=== PATIENT | male | born 1995 | race Caucasian/White ===

== ENCOUNTER 2016-10-02 15:09 | Inpatient (IN) ==
[2016-10-02] MEDS ORDERED: TYLENOL PO PRN (16:28)
[2016-10-02] MEDS ORDERED: NS 1,000 ML IV SCH (16:45)
[2016-10-02] MEDS: ZOFRAN IV PRN ×2 (17:14→20:46)
[2016-10-02 17:15] LABS: MANUAL DIFF NEEDED? NO
[2016-10-02] MEDS: OXY IR PO PRN ×2 (17:15→21:52)
[2016-10-02 17:22] LABS: BASO% 0.4 % (0.0-0.8); EOS# 0.02 X1000 (0.0-0.7); EOS% 0.2 % (0.0-10.0); HEMATOCRIT 38.7 % (42.0-52.0); HEMOGLOBIN 12.7 g/dL (14.0-18.0); IMM GRAN# 0.04 X1000 (0.0-0.04); IMM GRAN% 0.4 % (0.0-0.5); LYMPH# 2.78 X1000 (1.2-3.4); LYMPH% 24.7 % (20.5-51.1); MCH 25.2 PG (27-31); MCHC 32.8 g/dL (33-37); MCV 76.8 FL (81-99); MONO% 6.2 % (1.7-9.3); NEUT% 68.1 % (42.2-75.2); PLT 547 X1000 (130-400); RBC 5.04 XMIL (4.7-6.1)
[2016-10-02 17:30] LABS: INR 1.16 (0.86-1.15); PROTIME 15.1 Seconds (12.1-15.5)
[2016-10-02 17:37] LABS: AGAP 15; ALBUMIN 4.3 g/dL (3.5-5.0); ALKALINE PHOSPHATASE 124 U/L (32-122); BUN 11 mg/dL (8-22); CALCIUM 9.5 mg/dL (8.8-10.2); CHLORIDE 102 mmol/L (98-107); COSMO 275; GOT 26 U/L (10-34); GPT 61 U/L (10-44); POTASSIUM 3.5 mmol/L (3.5-5.1); SODIUM 137 mmol/L (136-145); TCO2 20 mmol/L (25-35)
[2016-10-02] MEDS ORDERED: DURAGESIC 100 MICROGM/HR PATCH TD SCH (18:00)
[2016-10-02] MEDS ORDERED: DURAGESIC 50 MICROGM/HR PATCH TD SCH (18:00)
--- NOTE | 2016-10-02 18:41 | HISTORY AND PHYSICAL ---
CHIEF COMPLAINT: Scrotal pain and vomiting since Saturday. 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 He has an indwelling Groshong catheter that he receives home TPN therapy and has had multiple hydrocele surgeries. His last 1 was 1 week ago this past Saturday with Dr. Fitzgerald. The patient had the stitches to come loose and then the wound to open up. Was seen by his primary care physician today, who felt that he may be trying to set up a little cellulitis so he wanted him direct admitted from his office. PAST MEDICAL HISTORY: Short-gut syndrome associated with Crohn's, Gallagher's esophagus, hiatal hernia, chronic pain, and hydrocele repair. PAST SURGICAL HISTORY: Ileostomy, colectomy, Groshong catheter placement, and a recent hydrocele repair. FAMILY HISTORY: Noncontributory. SOCIAL HISTORY: Currently lives with family. Does not smoke any tobacco, alcohol, or illicit drug use. ALLERGIES: Morphine, tree nuts, Periactin, Benadryl, Haldol, adhesive, and potatoes. HOME MEDICATIONS: He takes Marinol 10 mg p.o. b.i.d., Cymbalta 30 mg p.o. daily, Nexium 40 mg p.o. q.a.m., fentanyl patch 250 mcg transdermally, Jinny 180 mg p.o. daily, hydroxyzine 50 mg p.o. q.4 hours p.r.n., Zofran ODT p.o. t.i.d. and p.r.n. (will be held), Roxicodone 60 mg p.o. q.2 hours p.r.n., Topamax 50 mg p.o. b.i.d., and Coumadin 1 mg p.o. at bedtime. LABORATORY DATA: We will obtain a CBC, CMP, PT, and INR. Will obtain a scrotal ultrasound today. We will continue his home medications. REVIEW OF SYSTEMS: He denied any fever, chills, blurred vision, dizziness, chest pain, coughing, shortness of breath. Denied any abdominal pain. He has had some vomiting and nausea, scrotal pain. Denied any burning or hurting with urination. PHYSICAL EXAMINATION: VITAL SIGNS: Temperature 97.7 degrees, pulse 87, respirations 18, blood pressure 124/70, saturating 100% on room air. GENERAL: This is a 21-year-old male, who is lying in the bed. His dad is at the bedside. Answers questions. HEENT: Normocephalic, atraumatic. Pupils are equal, round, reactive to light. Extraocular movements are intact. Oropharynx and nares are clear. NECK: Supple. LUNGS: Clear to auscultation bilaterally with equal expansion and chest wall movement. HEART: With regular rate and rhythm. No murmurs, rubs, or gallops. ABDOMEN: Soft, nontender, nondistended. Bowel sounds are present x4 quadrants. Ileostomy bag noted. GENITAL EXAM: Shows incision to middle of scrotum open but no drainage noted. No redness or erythema noted, or edema. EXTREMITIES: No clubbing, cyanosis, or edema. NEUROLOGICAL: The cranial nerves 2 through 12 are grossly intact. ASSESSMENT: 1. Questionable cellulitis of hydrocele repair. 2. Nausea and vomiting. 3. Short-gut syndrome secondary to his Crohn disease. PLAN: He has been admitted to the medical unit at [facility]. Place on a clear liquid diet. Again, we will obtain these labs, scrotal ultrasound. Continue his home medications. Place on normal saline at 100 mL an hour. Further orders after labs obtained. Will have wound care consulted to follow. Dictated by BRITTNEE Hoyos for Oniel Caraballo MD cc: BRITTNEE Hoyos MD Dr. Thomas
[2016-10-02] MEDS: NS 1,000 ML IV PRN (19:42)
[2016-10-02] MEDS ORDERED: ZOFRAN IV PRN (19:59)
[2016-10-02] MEDS: MARINOL PO SCH (20:46)
[2016-10-02] MEDS: DILAUDID IV PRN (20:46)
[2016-10-02] MEDS: TOPAMAX PO SCH (20:47)
[2016-10-02] MEDS: CYMBALTA PO SCH (20:47)
[2016-10-02] MEDS: COUMADIN PO SCH (20:47)
[2016-10-02] MEDS: HYDROXYZINE PO PRN (23:50)
[2016-10-03] MEDS: ZOFRAN IV PRN ×4 (00:34→18:59)
[2016-10-03] MEDS: DILAUDID IV PRN ×6 (00:34→22:09)
[2016-10-03] MEDS: NS 1,000 ML IV PRN ×2 (04:40→13:13)
[2016-10-03] MEDS: HYDROXYZINE PO PRN ×3 (05:21→14:48)
[2016-10-03 05:47] LABS: BILIRUBIN URINE NEGATIVE (NEGATIVE); BLOOD URINE NEGATIVE (NEGATIVE); CLARITY HAZY (CLEAR); COLOR AMBER; GLUCOSE URINE NEGATIVE (NEGATIVE); LEUKOCYTES URINE TRACE (NEGATIVE); NITRITE URINE NEGATIVE (NEGATIVE); PROTEIN URINE TRACE mg/dL (NEGATIVE); UROBILINOGEN URINE NORMAL
[2016-10-03 06:36] LABS: URINE RBC <10 /HPF (<10); URINE WBC <10 /HPF (<10)
[2016-10-03 06:37] LABS: URINE CULTURE PL NEEDED? YES; URINE EPITHELIAL CELLS <10 /HPF (<10)
[2016-10-03 06:38] LABS: URINE CAST EPITHELIAL PRESENT /LPF; URINE SOURCE CLEAN CATCH
[2016-10-03 06:40] LABS: URINE SMALL ROUND CELLS RENAL PRESENT
[2016-10-03] MEDS: MARINOL PO SCH ×2 (08:40→10:00)
[2016-10-03] MEDS: TOPAMAX PO SCH ×2 (09:58→20:37)
[2016-10-03] MEDS: NEXIUM PO SCH (09:58)
[2016-10-03] MEDS: CYMBALTA PO SCH ×2 (09:59→20:37)
[2016-10-03] MEDS: ALLEGRA PO SCH (09:59)
[2016-10-03] MEDS ORDERED: PHENERGAN IV ONE (14:19)
[2016-10-03] MEDS ORDERED: SODIUM CHLORIDE 0.9% INJ ONE (14:19)
--- NOTE | 2016-10-03 14:27 | Diag Imaging Result Document ---
PROCEDURE NAME: US SCROTUM - 10/03/2016 TESTICULAR ULTRASOUND: COMPARISON: 07/23/2016. FINDINGS: There is now a debris and septation within the right hydrocele. This complex echogenic area measures about 3.6 x 1.6 x 1.2 cm. This is compatible with an empyema or hematoma. The testes themselves remain normal with normal color Doppler blood flow. IMPRESSION: Right testicular empyema versus hematoma, new from the prior exam.
--- NOTE | 2016-10-03 14:37 | PROGRESS NOTE ---
DATE: 10/03/2016 SUBJECTIVE: The patient has no complaints. OBJECTIVE: Vital signs: Blood pressure 99/45, heart rate 106, respiratory rate 18, temperature 98.7 degrees, 98% on room air. Cardiovascular: Regular rhythm. Pulmonary: Bilateral breath sounds. Clear to auscultation. Gastrointestinal: Soft, nontender, nondistended. Bowel sounds are positive. Skin examination: He has an open area in his line of raphe, median line of raphe along his scrotum with some kind of brownish-yellowish purulence. Other tissue his otherwise okay, about 2-3 cm lesion though. LABORATORY DATA: None new today. White count is okay, was about 11 yesterday. PROBLEM LIST: 1. Scrotal wound dehiscence. Will continue wound care. I am going to get Urology to discuss the case, if anything else needs to be done and we will follow closely. 2. Short-gut syndrome, Crohn disease. We will continue fluids and advance diet and follow closely. He is nauseous, but he is also on a significant amount of pain medication at baseline. The first thing he is concerned about is getting Phenergan. I explained there was a shortage of that medication and we could give him 1 dose and see how he does and follow closely. DISPOSITION: Pending his clinical course. cc: Carlos Alberto Gtz MD
[2016-10-03] MEDS: OXY IR PO PRN (15:10)
[2016-10-03] MEDS: DOXYCYCLINE 100 MG in NS 250 ML IV SCH (16:32)
[2016-10-03] MEDS: COUMADIN PO SCH (20:38)
[2016-10-03] MEDS: PHENERGAN PO PRN (22:05)
[2016-10-04] MEDS: NS 1,000 ML IV PRN ×2 (00:32→09:43)
[2016-10-04] MEDS: DILAUDID IV PRN ×3 (03:13→18:04)
[2016-10-04] MEDS: DOXYCYCLINE 100 MG in NS 250 ML IV SCH ×2 (03:13→16:25)
[2016-10-04] MEDS: PHENERGAN PO PRN ×3 (03:13→18:04)
[2016-10-04 05:57] LABS: HEMATOCRIT 31.8 % (42.0-52.0); HEMOGLOBIN 10.4 g/dL (14.0-18.0); MCH 25.2 PG (27-31); MCHC 32.7 g/dL (33-37); MCV 77.2 FL (81-99); MPV 7.8 FL (7.4-10.4); RBC 4.12 XMIL (4.7-6.1)
[2016-10-04 06:13] LABS: AGAP 14; BUN 7 mg/dL (8-22); CALCIUM 8.1 mg/dL (8.8-10.2); CHLORIDE 103 mmol/L (98-107); COSMO 270; IRON SATURATION 34 %; POTASSIUM 3.1 mmol/L (3.5-5.1); SODIUM 136 mmol/L (136-145); TCO2 19 mmol/L (25-35); TIBC 247 ug/dL; TOTAL IRON 84 ug/dL (53-167); UNBOUND IRON 163 ug/dL (112-346)
[2016-10-04] MEDS: MARINOL PO SCH (09:40)
[2016-10-04] MEDS: CYMBALTA PO SCH (09:40)
[2016-10-04] MEDS: NEXIUM PO SCH (09:40)
[2016-10-04] MEDS: TOPAMAX PO SCH (09:40)
[2016-10-04] MEDS: ALLEGRA PO SCH (09:42)
[2016-10-04] MEDS: HYDROXYZINE PO PRN (09:43)
[2016-10-04] MEDS ORDERED: KLOR-CON PO ONE (10:19)
[2016-10-04 14:28] VITALS: BP 102/51
[2016-10-05] MEDS ORDERED: DOXYCYCLINE 100 MG in NS 250 ML IV SCH (03:00)
--- NOTE | 2016-10-05 14:28 | DISCHARGE SUMMARY ---
ADMISSION DATE: 10/02/2016 DISCHARGE DATE: 10/04/2016 DISCHARGE DIAGNOSIS: Cellulitis of his midline groin. He [place] [id number]. He had recently had a hydrocele repair. Apparently had some wound dehiscence and some increasing inflammation so he came in for evaluation. White count was up a little bit. He was empirically placed on nothing although I think now he has been placed on doxycycline. We started that yesterday with a little bit of leukocytosis. He has not had any fever. Wound culture is still pending and he only has very mild amount of gram-positive cocci. He did have some hypokalemia with potassium at 3.1, that was supplemented. He has chronic low potassium. In any case, he was felt stable for discharge. I did discuss the case with Dr. Fitzgerald who felt that wound care and oral antibiotics are sufficient and he would follow up with him as an outpatient. He is already set up with home health, hospice, palliative care and this will need to be followed up as an outpatient. His urine culture was no growth. Clinically he was felt stable for discharge. DISCHARGE MEDS: Doxycycline 100 p.o. b.i.d. for 7 days. Marinol 10 b.i.d. Cymbalta 30 b.i.d. Nexium 40 daily. Fentanyl patch 250 total mcg q.72. Ijnny 180 daily. Hydroxyzine 50 q.4. Zofran p.r.n. He has 2 different Zofran p.r.n. Roxicodone 60 q.2 p.r.n. Phenergan 25 p.o. q.4 p.r.n. Zanaflex 4 t.i.d. p.r.n. spasms. Topamax 50 b.i.d., and warfarin 1 mg at bedtime. He will need to follow up with his PCP in [address] Fitzgerald next week. We will set up that appointment. Please return for worsening pain or swelling. There was no evidence of herniation during the process. His ultrasound was unremarkable. Right testicular empyema versus hematoma. The testes were normal however. Clinically again he is going out on oral antibiotics. We will discuss the case briefly with Dr. Fitzgerald and we will go from there. cc: Carlos Alberto Gtz MD
== END 2016-10-04 19:08 | disposition home health service (06) ==
LOC: P.DIRADM → OBSVTOIN 15:09 → SUATTDRO 15:09 → P.MEDSURG 15:14
PROVIDERS: ATTEND Internal Medicine